=== PATIENT | female | born 1980 | race African-American/Black ===

== ENCOUNTER → 2018-05-05 12:38 | Outpatient (CLI) | payer BC ==
[2015-10-04 12:48] VITALS: BMI 56.6
[~2018-05-05 12:38] MED LIST: BAYER CHEWABLE81 MG PO; BENTYL10 MG PO; COZAAR50 MG PO; EZFE 200200 MG PO; K-DUR20 MEQ PO; MAG-OX 400 MG400 MG PO; NAPROSYN500 MG PO; PROPAFENONE HC300 MG PO; ZANTAC150 MG PO
[2018-05-05 14:18] LABS: HCG SERUM NEGATIVE (NEGATIVE)
[2018-05-05 14:21] LABS: ALBUMIN 3.4 g/dL (3.4-5.0); BILIRUBIN - DIRECT 0.1 mg/dL (0.00-0.30); BILIRUBIN - INDIRECT 0.27 mg/dL (0.00-1.00); BILIRUBIN - TOTAL 0.37 mg/dL (0.2-1.3); PROTEIN - SERUM 7.5 g/dL (6.4-8.2)
== END | disposition home or self-care (01) ==
LOC: D.NM 12:38
PROVIDERS: ATTEND Internal Medicine Gastroenterology
DX: K85.90 Acute pancreatitis without necrosis or infection, unspecified (principal); R10.11 Right upper quadrant pain; K21.9 Gastro-esophageal reflux disease without esophagitis